=== PATIENT | female | born 1965 | race Caucasian/White ===

== ENCOUNTER 2021-01-29 00:57 | Emergency (ER) | payer OTHER ==
[2021-01-29 01:06] VITALS: BP 100/57; PULSE 67; RESP 20; TEMP 98.3
[2021-01-29] MEDS ORDERED: LIDOCAINE 1% INJ 10MG/ML (20 ML MDV) SQ ONE (01:19)
[2021-01-29] MEDS ORDERED: DIPH,PERTUS(ACELL)TETVAC-LF 0.5 ML VIAL IM ONE (01:32)
--- NOTE | 2021-01-29 01:35 | ED ---
Wound/Laceration HPI - General Chief Complaint: Wound/Laceration Stated Complaint: finger laceration, [facility] Time Seen by Provider: 01/29/21 01:10 Source: patient Mode of arrival: ambulatory Limitations: no limitations - History of Present Illness Initial Comments: 55-year-old female presenting to emergency Department with a chief complaint of a laceration that occurred about one hour prior to arrival. Patient reports while she was at work, she lacerated the palmar aspect of the left second digit. Patient reports there was some bleeding which has since resolved. Denies any paresthesias or weakness to the finger but does report some pain to palpation. Not on blood thinners. Tetanus is not up-to-date. - Related Data Previous Rx's Medication Instructions Recorded Acetaminophen-Codeine 300-30mg 1 each PO Q6H PRN #20 tablet 07/20/15 [Tylenol #3] Ibuprofen [Motrin] 600 mg PO Q6HR PRN #30 tab 07/20/15 Ondansetron Odt [Zofran ODT] 4 mg PO Q8HR PRN #10 tab 07/20/15 Tamsulosin [Flomax] 0.4 mg PO DAILY #7 cap 07/20/15 Allergies Allergy/AdvReac Type Severity Reaction Status Date / Time No Known Allergies Allergy Verified 01/29/21 01:06 Review of Systems ROS Statement: Those systems with pertinent positive or pertinent negative responses have been documented in the HPI. ROS Other: All systems not noted in ROS Statement are negative. Past Medical History Past Medical History: Osteoarthritis (OA) Additional Past Medical History / Comment(s): past hx. kidney stones History of Any Multi-Drug Resistant Organisms: None Reported Past Surgical History: Cholecystectomy, Tubal Ligation Additional Past Surgical History / Comment(s): Dilatation and curettage Past Anesthesia/Blood Transfusion Reactions: Postoperative Nausea & Vomiting (PONV) Past Psychological History: No Psychological Hx Reported Smoking Status: Never smoker Past Alcohol Use History: None Reported Past Drug Use History: Marijuana - Past Family History Mother Family Medical History: CVA/TIA, Diabetes Mellitus Additional Family Medical History / Comment(s): Alzheimer's, Parkinson's Disease Father Family Medical History: Myocardial Infarction (SC) General Exam Limitations: no limitations General appearance: alert, in no apparent distress Head exam: Present: atraumatic, normocephalic, normal inspection Eye exam: Present: normal appearance Pupils: Present: normal accommodation ENT exam: Present: normal exam, normal oropharynx, mucous membranes moist Neck exam: Present: normal inspection, full ROM Respiratory exam: Present: normal lung sounds bilaterally. Absent: respiratory distress Cardiovascular Exam: Present: regular rate, normal rhythm, normal heart sounds. Absent: systolic murmur Extremities exam: Present: full ROM, tenderness (Minimal tenderness at the i njured site), normal capillary refill, other (Sensation intact in the left hand). Absent: normal inspection (5 mm laceration to the palmar aspect of the left second digit) Back exam: Present: normal inspection, full ROM Neurological exam: Present: alert, oriented X3 Psychiatric exam: Present: normal affect, normal mood Skin exam: Present: warm, dry, intact, normal color Course Vital Signs 01/29/21 01:03 Temperature 98.3 F Pulse Rate 67 Respiratory 20 Rate Blood Pressure 100/57 O2 Sat by Pulse 98 Oximetry Procedures - Laceration Laceration #1 Consent Obtained: verbal consent Indication: laceration Site: hand Size (cm): 1 Description: linear, clean Depth: simple, single layer Sedation/Analgesia: none Pre-repair: irrigated extensively, deep structures intact Type of Sutures: nylon Size of Sutures: 4-0 Number of Sutures: 1 Technique: simple, interrupted Complications: pain, bleeding Patient Tolerated Procedure: well, no complications Medical Decision Making - Medical Decision Making 55-year-old male presents to emergency with a chief complaint of laceration. Patient is neurovascularly intact in the left second digit. Laceration site was thoroughly irrigated and repaired with one suture. Patient tolerated procedure well. Tetanus was updated. Patient vised to return for suture removal. Disposition Clinical Impression: Laceration Disposition: HOME SELF-CARE Condition: Stable Instructions (If sedation given, give patient instructions): Care For Your Stitches (DC), Laceration (DC) Additional Instructions: Please return to the emergency room in 8-10 days to have sutures removed. Bonnie e watch for any signs of infection which may include increased pain, swelling, redness, fever or chills. Please return to emergency room for any signs of infection do occur. Please use clean soap and water over the area to prevent scabbing over your stitches. Please leave wound covered for the first 24-48 hours and then leave wound open to air. Please return to the emergency room for any other concerns. Is patient prescribed a controlled substance at d/c from ED?: No Referrals: None,Stated [Primary Care Provider] - 1-2 days Time of Disposition: 01:35
== END 2021-01-29 01:54 | disposition home or self-care (01) ==
LOC: EC 00:57
DX: S61.211A Laceration without foreign body of left index finger without damage to nail, initial encounter (principal); M19.90 Unspecified osteoarthritis, unspecified site; F12.90 Cannabis use, unspecified, uncomplicated; Z79.1 Long term (current) use of non-steroidal anti-inflammatories (NSAID); Z79.899 Other long term (current) drug therapy; Z83.3 Family history of diabetes mellitus; W26.8XXA Contact with other sharp object(s), not elsewhere classified, initial encounter; Y99.0 Civilian activity done for income or pay
CPT/HCPCS: 90471; 90715; 99282

== ENCOUNTER → 2021-02-07 | Outpatient (CLI) | payer OTHER ==
--- NOTE | 2021-02-07 12:11 | XR ---
EXAMINATION TYPE: XR finger LT DATE OF EXAM: 02/07/2021 COMPARISON: None HISTORY: Laceration left index finger TECHNIQUE: 3 view left index finger FINDINGS: No acute fractures or dislocations are evident. There may be some mild diffuse soft tissue swelling present. Discrete laceration is not identified. Joint spaces are preserved. No radiopaque foreign bodies identified. IMPRESSION: 1. No radiopaque foreign body. 2. Suggestion of minimal soft tissue swelling
== END | disposition home or self-care (01) ==
LOC: RADXRMAIN 10:55
PROVIDERS: ATTEND Emergency Medicine
DX: S61.211A Laceration without foreign body of left index finger without damage to nail, initial encounter (principal)